=== PATIENT | female | born 1995 | race Caucasian/White ===

== ENCOUNTER 2018-01-14 02:38 | Emergency (ER) | payer SELFPAY ==
[~2018-01-14] VITALS: Ht 170.2 cm; Wt 120.6 kg
[~2018-01-14 02:38] MED LIST: AMOXICILLIN500 MG PO
[2018-01-14 03:19] LABS: HEMOGLOBIN 13.7 G/DL (11.9-15.5); MCHC 33.4 G/DL (30.0-36.0); MCV 83.8 FL (83-99); PLATELET COUNT 313 K/uL (156-360); RED BLOOD COUNT 4.89 M/uL (3.80-5.20); WHITE BLOOD COUNT 10.2 K/uL (4.1-10.2)
[2018-01-14 03:30] LABS: CHLORIDE 108 mEq/L (99-109); POTASSIUM 3.7 mEq/L (3.7-5.4); SODIUM 140 mEq/L (136-147)
[2018-01-14 03:32] LABS: GLUCOSE 88 mg/dL (70-99)
[2018-01-14 03:36] LABS: CREATININE 0.7 mg/dL (0.6-1.3); GFR ESTIMATE (CALCULATED) > 59 mL/min/
[2018-01-14 03:37] LABS: UREA NITROGEN (BUN) 10 mg/dL (9-23)
[2018-01-14 03:40] LABS: TROP-I INTERPRETATION NEGATIVE; TROPONIN-I < 0.01 ng/mL (0.0-0.30)
[2018-01-14] MEDS ORDERED: ZITHROMAX Z-PA250 MG PO (03:43)
[2018-01-14 04:57] VITALS: BP 107/61
== END 2018-01-14 04:57 | disposition home or self-care (01) ==
LOC: EME 02:38
DX: J18.9 Pneumonia, unspecified organism (principal); F17.200 Nicotine dependence, unspecified, uncomplicated; Z91.040 Latex allergy status
CPT/HCPCS: 71046; 80048; 84484; 85027; 93005; 99281; 99284